=== PATIENT | female | born 1975 | race African-American/Black ===

== ENCOUNTER 2018-12-31 15:42 | Emergency (ER) | payer OTHER ==
[~2018-12-31] VITALS: Ht 170.2 cm; Wt 77.1 kg
[~2018-12-31 15:42] MED LIST: CYCLOBENZAPRINE5 MG PO; IBUPROFEN 800800 MG PO
[2018-12-31 16:08] LABS: URINE BILIRUBIN NEGATIVE (Negative); URINE BLOOD 1+ (Negative); URINE CLARITY CLEAR; URINE COLOR YELLOW; URINE GLUCOSE-RANDOM* NEGATIVE (Negative); URINE KETONES NEGATIVE (Negative); URINE LEUKOCYTES-REFLEX NEGATIVE (Negative); URINE NITRITE-REFLEX NEGATIVE (Negative); URINE PROTEIN (DIPSTICK) NEGATIVE (Negative); URINE SPECIFIC GRAVITY 1.015 (1.005-1.035); URINE UROBILINOGEN 0.2 E.U./dl (0.2-1.0)
[2018-12-31 16:20] LABS: ABSOLUTE NEUTROPHILS 3.2 thou/uL (1.4-8.2); BASOPHILS 0.9 % (0.0-2.0); EOSINOPHILS 1.1 % (0.0-3.0); HEMATOCRIT 40.1 % (37.0-47.0); HEMOGLOBIN 13.6 gm/dL (12.0-15.0); LYMPHOCYTES 26.1 % (24.0-44.0); MCH 27.2 pg (26.0-34.0); MCHC 33.9 g/dL (28.0-37.0); MCV 80.3 fL (80.0-100.0); MONOCYTES 8.7 % (1.0-8.0); PLATELET COUNT 259 thou/uL (150-400); POLYS 63.2 % (36.0-66.0); RDW 16.3 % (10.5-14.5)
[2018-12-31 16:22] LABS: SQUAMOUS >10 Many /LPF (0-3)
[2018-12-31 16:23] LABS: BACTERIA-REFLEX 1-9 Few /HPF (None Seen); CASTS None Seen /LPF (None Seen); CRYSTALS None Seen /LPF (None Seen); URINE RBC 3-10 Few /HPF (0-2); URINE WBC-REFLEX 0-5 Rare /HPF (0-5)
[2018-12-31 16:29] LABS: CALCIUM 8.9 mg/dL (8.5-10.1); CREATININE 0.8 mg/dL (0.6-1.0); POTASSIUM 4.2 mmol/L (3.5-5.1)
[2018-12-31 16:34] LABS: ALBUMIN 3.7 g/dL (3.4-5.0); TOTAL BILIRUBIN 0.7 mg/dL (<0.1-1.0); TOTAL PROTEIN 7.5 g/dL (6.4-8.2)
[2018-12-31] MEDS ORDERED: KEFLEX500 M1 PO (18:37)
[2018-12-31] MEDS ORDERED: FLAGYL500 M1 PO (18:37)
[2018-12-31] MEDS ORDERED: NORCO 10-325 T1 EACH PO (18:37)
[2018-12-31 19:36] VITALS: BP 138/84
--- NOTE | 2019-01-01 08:11 | EKG ---
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: kari : 1975 Requested By: Ramiro Aldana Order Number: [id number] MD: Jorge Boothe Measurements Intervals [place] Rate: 76 P: 32 MS: 145 QRS: 26 QRSD: 84 T: 9 QT: 376 QTc: 423 Interpretive Statements Sinus rhythm Borderline T abnormalities, anterior leads No previous ECG available for comparison Electronically Signed On 01-01-2019 8:11:14 [employer] by Jorge Boothe [email or web address] <ELECTRONICALLY SIGNED> By: Jorge Boothe MD, [facility] 01/01/19 0811 1731 1731 Jorge Boothe MD, FACC /EPI
== END 2018-12-31 19:36 | disposition home or self-care (01) ==
LOC: ER 15:42
PROVIDERS: Physician Assistant
DX: N39.0 Urinary tract infection, site not specified (principal); A59.9 Trichomoniasis, unspecified; D25.9 Leiomyoma of uterus, unspecified

== ENCOUNTER 2021-05-01 17:45 | Emergency (ER) | payer OTHER ==
[~2021-05-01] VITALS: Ht 172.7 cm; Wt 83.0 kg
[~2021-05-01 17:45] MED LIST changes: +FLAGYL500 M1 PO; +KEFLEX500 M1 PO; +NORCO 10-325 T1 EACH PO
[2021-05-01 18:41] LABS: ABSOLUTE NEUTROPHILS 5.4 thou/uL (1.4-8.2); BASOPHILS 0.4 % (0.0-2.0); EOSINOPHILS 1.4 % (0.0-3.0); HEMATOCRIT 36.3 % (37.0-47.0); HEMOGLOBIN 11.9 gm/dL (12.0-15.0); LYMPHOCYTES 10.8 % (24.0-44.0); MCHC 32.7 g/dL (28.0-37.0); MCV 85.6 fL (80.0-100.0); MONOCYTES 10.3 % (1.0-8.0); PLATELET COUNT 215 thou/uL (150-400); POLYS 77.1 % (36.0-66.0); RBC 4.24 mil/uL (4.20-5.00); RDW 13.7 % (10.5-14.5)
[2021-05-01 18:55] LABS: CALCIUM 7.7 mg/dL (8.5-10.1); POTASSIUM 4.1 mmol/L (3.5-5.1)
[2021-05-01 19:01] LABS: DIRECT BILIRUBIN 0.1 mg/dL (<0.1-0.2); TOTAL BILIRUBIN 0.3 mg/dL (0.2-1.0); TOTAL PROTEIN 6.9 g/dL (6.4-8.2)
[2021-05-01 19:58] LABS: URINE BILIRUBIN NEGATIVE (Negative); URINE BLOOD 2+ (Negative); URINE COLOR YELLOW; URINE GLUCOSE-RANDOM* NEGATIVE (Negative); URINE KETONES NEGATIVE (Negative); URINE NITRITE-REFLEX NEGATIVE (Negative); URINE PROTEIN (DIPSTICK) TRACE (Negative); URINE SPECIFIC GRAVITY <= 1.005 (1.005-1.035); URINE UROBILINOGEN 0.2 E.U./dl (0.2-1.0)
[2021-05-01 20:02] LABS: URINE CLARITY CLOUDY; URINE LEUKOCYTES-REFLEX 3+ (Negative)
[2021-05-01 20:05] LABS: BACTERIA-REFLEX 1-9 Few /HPF (None Seen); CRYSTALS None Seen /LPF (None Seen); SQUAMOUS 0-3 Few /LPF (0-3); URINE RBC 1-2 Rare /HPF (NONE SEEN); URINE WBC-REFLEX >25 Many /HPF (0-5)
[2021-05-01] MEDS ORDERED: CIPRO500 M1 PO ×3 (20:19→21:28)
[2021-05-01 21:43] VITALS: BP 113/64
== END 2021-05-01 21:45 | disposition home or self-care (01) ==
LOC: ER 17:45
PROVIDERS: Nurse Practitioner
DX: R10.11 Right upper quadrant pain (principal); Z87.42 Personal history of other diseases of the female genital tract; Z79.899 Other long term (current) drug therapy; Z79.2 Long term (current) use of antibiotics